=== PATIENT | female | born 2005 | race Hispanic/Latino ===

== ENCOUNTER 2025-02-06 00:12 | Emergency (ER) | payer SELFPAY ==
[~2025-02-06] VITALS: Ht 172.7 cm; Wt 77.1 kg
--- NOTE | 2025-02-06 00:27 | ERN ---
ED Note History of Present Illness Stated Complaint: ABD PAIN, VAGINAL DISCHARGE, N/V Chief Complaint: Abdominal Pain Time Seen by MD: 00:16 Dictation: PATIENT IS A 19-YEAR-OLD FEMALE HERE WITH HER WITH COMPLAINTS OF INTERMITTENT PELVIC PAIN WITH DISCHARGE FOR THE LAST COUPLE OF DAYS. SHE HAS ALSO HAD NAUSEA WITHOUT VOMITING. NO FEVER NO CHILLS NO BACK PAIN. SHE STATES SHE WENT TO [facility] [place] LAST WEEK AND WAS TOLD SHE HAD HAD A MRS. CARRIAGE EVEN THOUGH HER HCG WAS TOO. SHE DID NOT GET REFERRED TO AN DIVE SUPERINTENDENT DOCTOR IN HIS NOW CONCERN SHE MAY STILL BE . NO VAGINAL BLEEDING AT THIS TIME. NO PAIN Allergies: Coded Allergies: No Known Allergies (Unverified Allergy, Unknown, 02/06/25) Past Medical History Past Medical History: No Pertinent History Surgical History: None LMP: Jan 03, 2025 : 1 Aborts: 1 RN Note Reviewed/Agreed w/PFSH: Yes Review of System Dictation CONSTITUTIONAL: NEGATIVE EXCEPT FOR HPI HEAD/FACE: NEGATIVE EXCEPT FOR HPI EENT: NEGATIVE EXCEPT FOR HPI RESPIRATORY: NEGATIVE EXCEPT FOR HPI GASTROINTESTINAL/ABDOMINAL: NEGATIVE EXCEPT FOR HPI GENITOURINARY: NEGATIVE EXCEPT FOR HPI INTERMITTENT PELVIC PAIN MUSCULOSKELETAL: NEGATIVE EXCEPT FOR HPI INTEGUMENTARY: NEGATIVE EXCEPT FOR HPI NEUROLOGICAL/PSYCH: NEGATIVE EXCEPT FOR HPI HEMATOLOGIC/LYMPHATIC: NEGATIVE EXCEPT FOR HPI ALL SYSTEMS NEGATIVE, EXCEPT NOTED ABOVE. 13 POINT REVIEW OF SYSTEMS ASSESSED AND ALL NEGATIVE EXCEPT FOR ABOVE. Initial Vital Sign VS Vital Signs Date Time Temp Pulse Resp B/P (MAP) Pulse Ox O2 Delivery O2 Flow Rate FiO2 02/06/25 00:13 97.9 89 18 159/108 100 Room Air Physical Exam Dictation VITAL SIGNS REVIEWED GENERAL APPEARANCE: ALERT, ORIENTED X 3, NO ACUTE DISTRESS, WELL DEVELOPED, NOURISHED. PAIN AT THIS TIME. HEAD AND FACE: NON-TRAUMATIC. EYES: PERRL, PINK CONJUNCTIVAS, EYELID NO TRAUMA, ANTERIOR CHAMBER WITH ARCUS SE NILIS. EARS: PINNAS INTACT AND NO SIGNS OF TRAUMA OR ERYTHEMA EAR CANALS CLEAR AND NO DISCHARGE TM NO ERYTHEMA NOSE: NO DISCHARGE, NO BLEEDING. OROPHARYNX: MOUTH NORMAL, TONGUE PINK, PHARYNX CLEAR,NO ERYTHEMA, TONSILS NO EXUDATES, NO ABSCESSES NOTED, MUCOUS MEMBRANE MOIST NECK: SUPPLE, NON-TENDER, NO THYROMEGALY, NO MASSES, NO JVD, NO BRUITS BREAST:DEFERRED CHEST:NO TENDERNESS, NO CREPITUS, NO PARADOXICAL MOVEMENT, NO RETRACTIONS LUNGS:CLEAR, WELL-VENTILATED, SYMMETRIC, NO RALES, NO WHEEZING, NO RHONCHI, NO STRIDOR, GOOD BREATH SOUNDS BILATERALLY HEART: REGULAR RATE, REGULAR RHYTHM, NO MURMUR, NO GALLOPS VASCULAR: NO PERIPHERAL EDEMA, ABDOMEN: SOFT, POSITIVE BOWEL SOUNDS, NONDISTENDED, NO GUARDING, NONTENDER, NO REBOUND, NO MASSES NO HEPATOMEGALY, NO SPLENOMEGALY, NO NELSON'S SIGN, NO HERNIAS. RECTAL: DEFERRED GENITAL: DEFERRED NEUROLOGICAL: NORMAL SPEECH, MOTOR FUNCTION INTACT, SENSORY FUNCTION INTACT MUSCULOSKELETAL: NECK NONTENDER, FULL RANGE OF MOTION, BACK NONTENDER, FULL RANGE OF MOTION, EXTREMITIES: NONTENDER, FULL RANGE OF MOTION SKIN: COLOR PINK, DRY, NO TURGOR, NO RASH, NO LACERATIONS, NO ABRASIONS, NO CONTUSIONS. LYMPHATIC: DEFERRED Results (Laboratory/Radiology) Laboratory/Radiology Laboratory Tests Test 02/06/25 00:25 02/06/25 00:32 Urine Color LIGHT-YELLOW (YELLOW) Urine Appearance CLEAR (CLEAR) Urine pH 5.5 (5.0-8.0) Urine Specific Alexander 1.015 (1.001-1.031) Urine Protein NEGATIVE mg/dL (NEGATIVE) Urine Glucose (UA) NEGATIVE mg/dL (NEGATIVE) Urine Ketones NEGATIVE mg/dL (NEGATIVE) Urine Occult Blood +- (TRACE) (NEGATIVE) H Urine Nitrate NEGATIVE (NEGATIVE) Urine Bilirubin NEGATIVE mg/dL (NEGATIVE) Urine Urobilinogen 0.2 mg/dL (0.2-1.0) Urine Leukocyte Esterase NEGATIVE Jessie/uL Urine RBC 0-1 /HPF (0-1) Urine WBC 0-1 /HPF (0-1) Urine Squamous Epithelial Cells RARE /HPF (0-2) Urine Bacteria None /HPF (None Seen) White Blood Count 10.1 K/uL (4.8-10.8) Red Blood Count 4.78 MIL/uL (4.00-5.50) Hemoglobin 12.0 g/dL (12.0-16.0) Hematocrit 37.7 % (36-48) Mean Corpuscular Volume 78.9 fL (80-100) L Mean Corpuscular Hemoglobin 25.1 pg (27.0-33.0) L Mean Corpuscular Hemoglobin Concent 31.8 g/dL (32.0-36.0) L Red Cell Distribution Width 15.9 % (11.0-15.5) H Platelet Count 379 K/uL (130-400) Mean Platelet Volume 9.6 fL (7.5-10.5) Immature Granulocyte % (Auto) 0.4 % (0-1) Neutrophils (%) (Auto) 53.5 % (40.0-77.0) Lymphocytes (%) (Auto) 37.7 % (21.0-51.0) Monocytes (%) (Auto) 6.1 % (3.0-13.0) Eosinophils (%) (Auto) 1.8 % (0.0-8.0) Basophils (%) (Auto) 0.5 % (0.0-5.0) Neutrophils # (Auto) 5.4 K/uL (1.8-7.7) Lymphocytes # (Auto) 3.8 K/uL (1.0-4.8) Monocytes # (Auto) 0.6 K/uL (0.1-1.0) Eosinophils # (Auto) 0.18 K/uL (0.00-0.70) Basophils # (Auto) 0.05 K/uL (0.00-0.20) Absolute Immature Granulocyte (auto 0.04 K/uL (0-1) Nucleated Red Blood Cells 0.0 % (0.0-0.19) Sodium Level 138 mmol/L (136-145) Potassium Level 4.0 mmol/L (3.5-5.1) Chloride Level 101 mmol/L (101-111) Carbon Dioxide Level 31 mmol/L (21-32) Blood Urea Nitrogen 7 mg/dL (7-18) Creatinine 0.5 mg/dL (0.5-1.0) Glomerular Filtration Rate Calc 138 mL/min (>90) Random Glucose 92 mg/dL (70-105) Total Calcium 9.2 mg/dL (8.5-10.1) Human Chorionic Gonadotropin, Quant 0 mIU/mL (0-5) Labs Reviewed?: Yes ED Course ED Course Orders Procedure Category Date Status Time Urinalysis Profile LAB 02/06/25 Complete 00:14 Cbc With Differential LAB 02/06/25 Complete 00:24 Hcg,Quantitative LAB 02/06/25 Complete 00:24 Basic Metabolic Panel LAB 02/06/25 Complete 00:24 Type And Screen BBK 02/06/25 In Process 00:24 Vital Signs Date Time Temp Pulse Resp B/P (MAP) Pulse Ox O2 Delivery O2 Flow Rate FiO2 02/06/25 00:13 97.9 89 18 159/108 100 Room Air 0130/SPOKE TO PATIENT AND AT LENGTH REGARDING LAB FINDINGS. THEY ARE AWARE THAT THERE WAS NO NO URINARY TRACT INFECTION NO ANEMIA NO SIGNIFICANT FINDINGS ALSO HCG QUANT IS 0. Medical Decision Making MDM MEDICAL DECISION-MAKING BASED ON BASIC LABS FOR RULING OUT . HCG IS 0 LABS UNREMARKABLE PATIENT DISCHARGED HOME AND TOLD TO FOLLOW UP WITH HER DOCTOR NEXT WEEK. DX & DISP Disposition: Discharge Departure Impression: Primary Impression: Pelvic pain in female Condition: Stable Scripts Ibuprofen (Ibuprofen 800 mg Tab) 800 Mg Tab 800 MG PO Q8H PRN for fever or pain, #30 TAB 0 Refills Prov: GINA BROWN NP 02/06/25 Additional Instructions: FOLLOW-UP WITH PRIMARY CARE PROVIDER IN 1 TO 2 DAYS. TAKE MEDICATIONS DIRECTED HERE IN THE EMERGENCY ROOM. OKAY TO CONTINUE HOME MEDICATIONS UNLESS OTHERWISE DISCUSSED DURING YOUR VISIT IN THE EMERGENCY ROOM TODAY. RETURN TO YOUR NEAREST EMERGENCY ROOM IF SYMPTOMS WORSEN OR IF THERE IS NO IMPROVEMENT. CALL 911 IF YOU NEED IMMEDIATE ASSISTANCE. TAKE TYLENOL OR MOTRIN [id number] NEEDED AND IF NO CONTRAINDICATIONS ARE PRESENT. INCREASE ORAL HYDRATION. A WOUND CULTURE OR URINE CULTURE WAS ORDERED HERE IN THE EMERGENCY ROOM DEPARTMENT PLEASE FOLLOW-UP WITH PRIMARY CARE PROVIDER AND ADVISE THEM TO GET REPEAT PORTS FROM OUR FACILITY. IF YOU HAD ANY VALERIE WRAP/SPLINTS THAT WERE APPLIED HERE, PLEASE DO NOT REMOVE THEM UNTIL YOU SEE YOUR PRIMARY CARE OR SPECIALTY. DIET AND ACTIVITY TOLERATED. FOLLOW UP WITH THE YOUR DIVE SUPERINTENDENT DOCTOR IN THE NEXT SEVERAL DAYS FOR MANAGEMENT. Referrals: SELF,REFERRAL (PCP) Time of Disposition: 01:28 I have reviewed the case, and I agree with, Diagnosis and Plan GINA BROWN CLEANING SPECIALIST Feb 06, 2025 00:27
[2025-02-06 00:53] LABS: IMMATURE GRANULOCYTE ABSOLUTE 0.04 K/uL (0-1); NUCLEATED RED BLOOD CELLS 0.0 % (0.0-0.19); PLATELET COUNT (AUTO) 379 K/uL (130-400); RED BLOOD CELL COUNT(AUTO) 4.78 MIL/uL (4.00-5.50); RED CELL DISTRIBUTION WIDTH 15.9 % (11.0-15.5); WHITE BLOOD COUNT (AUTO) 10.1 K/uL (4.8-10.8)
[2025-02-06 01:01] LABS: APPEARANCE,URINE CLEAR (CLEAR); GLUCOSE, URINE (UA) NEGATIVE (NEGATIVE); LEUKOCYTE ESTERASE ,URINE NEGATIVE Leu/uL (NEGATIVE); NITRATE,URINE NEGATIVE (NEGATIVE); OCCULT BLOOD,URINE +- (TRACE) (NEGATIVE)
[2025-02-06 01:02] LABS: ADD UA MICROSCOPIC YES
[2025-02-06 01:03] LABS: SQUAMOUS EPITHELIAL CELL,UR RARE /HPF (0-2)
[2025-02-06 01:04] LABS: CREATININE 0.5 mg/dL (0.5-1.0); GLOMERULAR FILTR. RATE CALC 138.0 mL/min (>90); GLUCOSE,RANDOM 92.0 mg/dL (70-105); SODIUM SERUM 138.0 mmol/L (136-145); UREA NITROGEN, BLOOD 7.0 mg/dL (7-18)
[2025-02-06 01:15] LABS: HCG,QUANTITATIVE 0.0 mIU/mL (0-5)
[2025-02-06] MEDS ORDERED: IBUP-2077 PO (01:29)
[2025-02-06 01:32] VITALS: BP 147/84; PULSE 82; RESP 18; TEMP 98.3; O2SAT 99
== END 2025-02-06 01:35 | disposition home or self-care (01) ==
LOC: EDH 00:12
DX: R10.2 Pelvic and perineal pain (principal)
CPT/HCPCS: 36415; 80048; 81001; 84702; 85025; 86850; 86900; 86901; 99283